=== PATIENT | male | born 1950 | race Caucasian/White ===

== ENCOUNTER 2022-07-25 06:28 | Day surgery (SDC) | payer MEDICARE, OTHER ==
[~2022-07-25] VITALS: Ht 167.6 cm; Wt 84.4 kg
[~2022-07-25 06:28] MED LIST: ADVIL200 MG PO; DICLOFENAC POTA50 MG; FAMOTIDINE40 MG PO; HYDROCODON-ACE1 EAC8 PO; LIPITOR40 MG PO; OMEGA 3 FISH O1 EACH PO; OMEGA 3-6-9 11200 M1 PO; TYLENOL325 MG PO
--- NOTE | 2022-07-25 08:19 | NUR ---
07/25/22 0819 Екатерина Bazzi 0810 PT ARRIVED TO PACU ON 3L NC, PT WAKES TO VERBAL STIMULI AND DENIES CONCERNS. PT ENCOURAGED TO PASS GAS. 0815 O2 REMOVED AND PLAN OF CARE DISCUSSED. PT EASILY FALLS BACK TO SLEEP.
--- NOTE | 2022-07-25 10:24 | NUR ---
PT ALERT, ORIENTED AND LUMBEE. PT IS HERE FOR HIS FIRST SCOPE-HE THINKS. GAVE ENCOURAGEMENT AND BLESSING. WILL FOLLOW NEEDED
--- NOTE | 2022-07-26 06:35 | OR ---
[facility] [address] [place], [place] [address] Signed DATE OF OPERATION: 07/25/2022 SURGEON: Vadim Mirza MD PREOPERATIVE DIAGNOSIS: Guaiac-positive stool. POSTOPERATIVE DIAGNOSES: 1. Moderate sigmoid diverticulosis. 2. Minimal internal hemorrhoids. 3. A 6 mm sessile polyp at 7 cm (rectum). 4. An 8 mm sessile polyp at cecum #1 (snare/clip). 5. A 3 mm polyp #2 at cecum. 6. An 8 mm sessile polyp at mid right colon (snare). PROCEDURE: Colonoscopy, snare polypectomy and hot biopsy. ESTIMATED BLOOD LOSS: None. INDICATIONS: Juan Jose is a 72-year-old gentleman, asked to see me for a colonoscopy. A recent stool sample had come back positive. He has no lower GI complaints. He said once in a while he uses a laxative for his constipation. He does drive truck for a living. No family history of colon cancer or polyps. He said many years ago. He is pretty certain he had a colonoscopy as well as an upper endoscopy. He thinks he was told he had gastritis. In the office, I gave him a pamphlet on colonoscopy. We reviewed the nature of the test. There is risk including, but not limited to gas bloating, crampy abdominal pain, bleeding, perforation requiring surgery, and missed diagnosis. We also reviewed the written instructions for the bowel prep line by line. We also reviewed the need for IV conscious sedation. He had expressed understanding and wished to proceed. DESCRIPTION OF PROCEDURE: Juan Jose was taken into our endoscopy suite and placed in the left lateral decubitus position. He was given 100 mcg of fentanyl and 8 mg of Versed. A digital rectal exam was performed and his prostate gland is surgically absent. No external hemorrhoids. Good sphincter tone. The adult colonoscope was introduced, advanced all around into the cecum under direct visualization of camera without difficulty. It did take a little extra sedation abdominal compression in order to advance the scope. We could easily see Electronically Signed By: VADIM MIRZA MD 07/26/22 0635 PATIENT NAME: JUAN JOSE PHILLIPS OPERATIVE REPORT DATE OF : 46 REPORT #: [id number] PHYSICIAN: VADIM MIRZA MD PCP: MIRANDA BRIGHT MD REPORT IS CONFIDENTIAL AND NOT TO BE RELEASED WITHOUT AUTHORIZATION [facility] [address] [place] [id number] Signed the appendiceal orifice. The above-mentioned polyps were removed either with the snare or the hot biopsy forceps. We did put a clip on the polyp in the cecum. We had taken pictures throughout for photodocumentation. We did see diverticula in the left and sigmoid colon. They were moderate in size, [id number] in number, and scattered about. He had a couple of areas of liquid particulate stool matter in the left colon and a little bit in the rectum that we could not quite irrigate and suction out completely. In the future, he should take a better bowel prep. We retroflexed the scope and we really did not see any pathology above the anal canal except for some very small internal hemorrhoid columns. After this, the gas was suctioned out, the colonoscope removed. Juan Jose tolerated the procedure quite well. RECOMMENDATIONS: Juan Jose is to follow up my office in 7 to 14 days to review his results. He might consider a shorter interval followup with a double bowel prep. Vadim Mirza MD ALB/MODL /[id number] cc: Miranda Bright MD Patient Chart Vadim Mirza MD Copies: VADIM MIRZA MD ~ Electronically Signed By: VADIM MIRZA MD 07/26/22 0635 PATIENT NAME: JUAN JOSE PHILLIPS OPERATIVE REPORT DATE OF : 46 REPORT #: [id number] PHYSICIAN: VADIM MIRZA MD PCP: MIRANDA BRIGHT MD REPORT IS CONFIDENTIAL AND NOT TO BE RELEASED WITHOUT AUTHORIZATION
--- NOTE | 2022-07-30 15:00 | PATH ---
[facility] [address] [place], [place] [address] Signed SPECIMEN(S): A RECTAL POLYP AT 7 CM SPECIMEN(S): B CECAL POLYP SPECIMEN(S): C CECAL POLYP SPECIMEN(S): D ASCENDING/RIGHT COLON POLYP SPECIMEN SOURCE: A. RECTAL POLYP AT 7 CM B. CECAL POLYP C. CECAL POLYP D. ASCENDING/RIGHT COLON POLYP CLINICAL HISTORY: Guaiac positive stool. Post: Diverticulosis, polyp and internal hemorrhoids FINAL PATHOLOGIC DIAGNOSIS: A. Rectal polyp at 7 cm: - Hyperplastic polyp (two fragments). B. Cecal polyp: - Serrated polyp/adenoma (two fragments). C. Cecal polyp: - Hyperplastic polyp (one fragment). D. Ascending/right colon polyp: - Serrated polyp/adenoma (four fragments). JVR:[id number] MICROSCOPIC EXAMINATION: Histologic sections of all submitted blocks are examined by light microscopy. These findings, together with the gross examination, support the pathologic diagnosis. GROSS DESCRIPTION: Four specimens are received in four containers, labeled "Juan Jose Phillips." A. The specimen, labeled "Marco Juan Jose, #1," and designated on the requisition "rectal polyp 7 cm," is received in formalin and consists of two sarabia soft tissue fragments that measure 0.3 and 0.4 cm in greatest dimension. The specimen is entirely submitted in cassette (A1). B. The specimen, labeled "Marco Juan Jose, #2," and designated on the requisition "cecal polyp," is received in formalin and consists of two sarabia soft tissue fragments that measure 0.4 and 0.7 cm in greatest dimension. The largest tissue fragment is inked and bisected. The specimen is entirely submitted in cassette (B1). PATIENT NAME: JUAN JOSE PHILLIPS PATHOLOGY DATE OF : 46 REPORT #: [id number] PHYSICIAN: CHRIS PATHOLOGY PCP: AUGIE HONG MD REPORT IS CONFIDENTIAL AND NOT TO BE RELEASED WITHOUT AUTHORIZATION [facility] [address] [place], [place] [address] Signed C. The specimen, labeled "Juan Jose Phillips, #3," and designated on the requisition "cecum polyp," is received in formalin and consists of one sarabia soft tissue fragment that measures 0.3 cm in greatest dimension. The specimen is entirely submitted in cassette (C1). D. The specimen, labeled "Juan Jose Phillips, #4," and designated on the requisition "ascending/right colon polyp," is received in formalin and consists of four sarabia soft tissue fragments that measure 0.2 to 0.4 cm in greatest dimension. The specimen is entirely submitted in cassette (D1). FB (under the direct supervision of a pathologist) The Gross Description was prepared using a voice recognition system. The report was reviewed for accuracy; however, sound-alike word errors, addition and/or deletions may occur. If there is any question about this report, please contact Client Services. PERFORMING LABORATORY: The technical component was performed by [facility], [address] [place] [id number] (CLIA# [id number]). The professional interpretation was performed by [facility], [facility], [address] [place] [address] (CLIA#: [id number]). Diagnostician: Kirt Mayo MD Pathologist Electronically Signed 07/30/2022 Copies: ~ PATIENT NAME: JUAN JOSE PHILLIPS PATHOLOGY DATE OF : 46 REPORT #: [id number] PHYSICIAN: [facility] PCP: AUGIE HONG MD REPORT IS CONFIDENTIAL AND NOT TO BE RELEASED WITHOUT AUTHORIZATION
== END 2022-07-25 09:00 | disposition home or self-care (01) ==
LOC: OPS 06:28 → DS 06:28 → OPS 07:30 → DS 07:30 → OPS 09:00
PROVIDERS: ATTEND Colon & Rectal Surgery
PROC: 0D5P8ZZ Destruction of Rectum, Via Natural or Artificial Opening Endoscopic (ICD-10-PCS; 2022-07-25)
PROC: 0D5F8ZZ Destruction of Right Large Intestine, Via Natural or Artificial Opening Endoscopic (ICD-10-PCS; 2022-07-25)
PROC: 0D5H8ZZ Destruction of Cecum, Via Natural or Artificial Opening Endoscopic (ICD-10-PCS; principal; 2022-07-25 07:30)
DX: D12.0 Benign neoplasm of cecum (principal); D12.2 Benign neoplasm of ascending colon; K62.1 Rectal polyp; R19.5 Other fecal abnormalities; K57.30 Diverticulosis of large intestine without perforation or abscess without bleeding; K64.8 Other hemorrhoids; E78.00 Pure hypercholesterolemia, unspecified; K21.9 Gastro-esophageal reflux disease without esophagitis; I10 Essential (primary) hypertension; G89.29 Other chronic pain; M25.512 Pain in left shoulder; M19.049 Primary osteoarthritis, unspecified hand; Z85.46 Personal history of malignant neoplasm of prostate; Z87.891 Personal history of nicotine dependence; Z88.6 Allergy status to analgesic agent
CPT/HCPCS: 99153; G0500; J2250; J3010; J7121